=== PATIENT | female | born 1935 | race Caucasian/White ===

== ENCOUNTER 2019-08-17 13:37 | Outpatient (CLI) | payer MEDICARE ==
--- NOTE | 2019-08-17 14:37 | ULT ---
US Renal Bilateral STANDARD HISTORY: Chronic renal disease. COMPARISON: CT abdomen and pelvis dated 08/03/2019 from the [facility]. FINDINGS: The right kidney measures 9.3; in the left kidney measures 9.871. No hydronephrosis is seen on this s arielle. There is a 3.2 cm cyst arising from the right kidney which is also seen on the CT scan. There are echogenic foci in the left kidney measuring 6 mm in the inferior pole and 5 mm in the midpole. Th is may represent calculi. The mass arising in the right perirenal space on the CT scan is not definitely seen on this exam. A f ollow-up CT scan of the abdomen and pelvis using the renal mass protocol is recommended in 3 months
[2019-08-17 16:15] LABS: Anion Gap 14 mmol/L (10-20); BUN (Urea Nitrogen) 19 mg/dL (9.8-20.1); Calc. Creatinine Clearance 0 mL/min (70-130); Calcium 10.5 mg/dL (7.8-10.44); Carbon Dioxide 25 mmol/L (23-31); Chloride 105 mmol/L (98-107); Estimated GFR-MDRD 38; Glucose 203 mg/dL (83-110); Potassium 4.7 mmol/L (3.5-5.1); Sodium 139 mmol/L (136-145)
[2019-08-17 16:24] LABS: Creatinine, Urine 132.2 mg/dL (47-110)
== END 2019-08-17 13:38 | disposition home or self-care (01) ==
LOC: SCSULT 13:37
PROVIDERS: ATTEND Internal Medicine Nephrology
DX: E11.22 Type 2 diabetes mellitus with diabetic chronic kidney disease (principal); N18.3 Chronic kidney disease, stage 3 (moderate)
CPT/HCPCS: 36415; 76770; 80048; 82570; 84156

== ENCOUNTER 2022-01-02 03:18 | Inpatient (IN) | payer MEDICARE ==
[2022-01-02] MEDS ORDERED: Nitroglycerin 50 MG/250 ML BOT 250 ML ONE (04:57)
[2022-01-02] MEDS ORDERED: Nitroglycerin 0.4 MG TAB (25 Tab Bottle) ONE (04:57)
[2022-01-02 06:30] LABS: #Lymphocytes 1.3 thou/uL (1.20-3.40); #Monocytes 0.9 thou/uL (0.11-0.59); #Neutrophils 10.4 thou/uL (1.40-6.50); %Basophils 0.1 % (0.0-1.0); %Eosinophils 0.1 % (0.0-10.0); %Lymphocytes 10.5 % (21.0-51.0); %Monocytes 7.2 % (0.0-10.0); Mean Corpuscular HGB CONC 31.7 g/dL (32.0-36.0); Mean Corpuscular Hemoglobin 29.5 pg (27.0-31.0); Mean Corpuscular Volume 93.3 fL (78.0-98.0); Mean Platelet Volume 8.9 fL (7.4-10.4); Platelet Count 225 thou/uL (130-400); RBC Distribution Width 12.6 % (11.5-14.5); Red Blood Cell (RBC) Count 3.74 mill/uL (4.20-5.40); White Blood Cell (WBC) Count 12.6 thou/uL (4.8-10.8)
[2022-01-02 06:33] VITALS: BMI 27.1
[2022-01-02 06:54] LABS: ALT (SGPT) 28 U/L (8-55); AST (SGOT) 81 U/L (5-34); Albumin 3.4 g/dL (3.4-4.8); Alkaline Phosphatase 50 U/L (40-110); Anion Gap 16 mmol/L (10-20); BUN (Urea Nitrogen) 20 mg/dL (9.8-20.1); Bilirubin, Total 0.3 mg/dL (0.2-1.2); Calc. Creatinine Clearance 30 mL/min (70-130); Calcium 9.8 mg/dL (7.8-10.44); Carbon Dioxide 24 mmol/L (23-31); Chloride 101 mmol/L (98-107); Estimated GFR 36; Globulin 2.6 g/dL (2.4-3.5); Glucose 336 mg/dL (83-110); Potassium 3.8 mmol/L (3.5-5.1); Sodium 137 mmol/L (136-145)
[2022-01-02 06:59] LABS: Troponin I 40.823 ng/mL (< 0.028)
[2022-01-02] MEDS ORDERED: Sodium Chloride 0.9% 1,000 ML IV SCH (07:00)
[2022-01-02] MEDS ORDERED: Heparin 25,000 units/D5W 500 ML IV SCH (07:00)
[2022-01-02] MEDS ORDERED: Nitroglycerin 50 MG/250 ML BOT 250 ML IVPB SCH ×2 (07:00→11:30)
[2022-01-02] MEDS ORDERED: Heparin 10,000 UNITS/ 10 ML VIAL SLOW IVP SCH (07:00)
[2022-01-02] MEDS ORDERED: Communication Order-Pharmacy FS PRN (07:07)
[2022-01-02 07:53] LABS: PTT 241.2 sec (22.9-36.1)
[2022-01-02] MEDS ORDERED: HumaLOG 300 UNITS/3 ML VIAL SC PRN (10:59)
[2022-01-02] MEDS ORDERED: Dextrose 50% Abboject 50 ML SYRINGE SLOW IVP PRN ×2 (10:59→16:30)
[2022-01-02] MEDS ORDERED: Dextrose 5% in Water 1,000 ML IV PRN ×2 (10:59→16:30)
[2022-01-02] MEDS ORDERED: Albumin 5% 500 ML ONE (11:49)
[2022-01-02] MEDS ORDERED: Midazolam HCl 5 mg/5 ml Vial ONE (11:56)
[2022-01-02] MEDS ORDERED: fentaNYL Citrate/PF 100 MCG/2 ML SYRINGE ONE (11:56)
[2022-01-02] MEDS ORDERED: Dexmedetomidine 200 MCG/2 ML VIAL ONE (11:57)
[2022-01-02] MEDS ORDERED: PHENYLEPHRINE-NS 100 MCG/ML 10 ML SYRINGE ONE ×2 (12:09→12:10)
[2022-01-02] MEDS ORDERED: Heparin 10,000 UNITS/1 ML VIAL 30,000 UNITS in Sodium Chloride 0.9% 1,000 ML IVPB SCH (12:15)
[2022-01-02] MEDS ORDERED: Protamine Sulfate 250 MG/25 ML VIAL ONE (12:39)
[2022-01-02] MEDS ORDERED: Cardioplegic Soln 1,000 ML BAG ONE (12:39)
[2022-01-02] MEDS ORDERED: Magnesium Sulfate 1 GM/2 ML VIAL ONE (12:39)
[2022-01-02] MEDS ORDERED: Aminocaproic Acid 5 GM/20 ML VIAL ONE (12:39)
[2022-01-02] MEDS ORDERED: Lidocaine 1% PF 5 ML VIAL ONE (12:39)
[2022-01-02] MEDS ORDERED: Lidocaine 2% PF 100 mg/5 ml Syringe ONE (12:39)
[2022-01-02] MEDS ORDERED: Heparin 5,000 UNITS/ML VIAL ONE (12:39)
[2022-01-02] MEDS ORDERED: Heparin 30,000 units/30 ml VIAL ONE (12:39)
[2022-01-02] MEDS ORDERED: Papaverine 60 MG/2 ML VIAL ONE (12:39)
[2022-01-02] MEDS ORDERED: Norepinephrine 4 MG/4 ML VIAL ONE (12:39)
[2022-01-02] MEDS ORDERED: PROPOFOL 200 MG/20 ML VIAL ONE (12:39)
[2022-01-02] MEDS ORDERED: Calcium Chloride 1 GM/10 ML Abboject SYRINGE ONE (12:39)
[2022-01-02] MEDS ORDERED: Mannitol 12.5 GM/50 ML ONE (12:39)
[2022-01-02] MEDS ORDERED: Sodium Bicarb 50 MEQ/50 ML Abboject 8.4% SYRINGE ONE (12:39)
[2022-01-02] MEDS ORDERED: Thrombin 5000 UNITS/5 ML VIAL ONE (12:39)
[2022-01-02] MEDS ORDERED: Milrinone 10 MG/10 ML VIAL ONE (14:48)
[2022-01-02] MEDS ORDERED: niCARdipine 25 MG in Sodium Chloride 0.9% 250 ML 250 ML IVPB PRN (16:02)
[2022-01-02] MEDS ORDERED: Ondansetron PF 4 MG/2 ML Vial IVP PRN (16:02)
[2022-01-02] MEDS ORDERED: Norepinephrine 8 MG/0.9% NS 250 ML IVPB PRN (16:02)
[2022-01-02] MEDS ORDERED: Bisacodyl 5 MG TAB PO PRN (16:02)
[2022-01-02] MEDS ORDERED: hydrALAZINE 20 MG/ML VIAL SLOW IVP PRN (16:02)
[2022-01-02] MEDS ORDERED: Bisacodyl 10 MG SUPP PR PRN (16:02)
[2022-01-02] MEDS ORDERED: Nitroglycerin 50 MG/250 ML BOT 250 ML IVPB PRN (16:02)
[2022-01-02] MEDS ORDERED: Morphine 2 MG/ML VIAL SLOW IVP PRN (16:02)
[2022-01-02] MEDS ORDERED: DOPamine 400 MG/D5W 250 ML 250 ML IVPB PRN (16:02)
[2022-01-02] MEDS ORDERED: Post-Op Insulin Drip Protocol IVPB ONE (16:02)
[2022-01-02] MEDS ORDERED: Guaifenesin DM 100-10/5 ML UDCUP PO PRN (16:02)
[2022-01-02] MEDS ORDERED: Mag-Al 1200 mg/1200 mg/30 ML UDCUP PO PRN (16:02)
[2022-01-02] MEDS ORDERED: HYDROcodone/Acetaminophen 5/325 mg Tablet PO PRN ×2 (16:02)
[2022-01-02] MEDS ORDERED: Hetastarch 6% 500 ML 500 ML IVPB PRN (16:02)
[2022-01-02] MEDS ORDERED: Fentanyl 100 MCG/2 ML VIAL SLOW IVP PRN ×2 (16:02)
[2022-01-02] MEDS ORDERED: HUMULIN R 100 UNITS in Sodium Chloride 0.9% 100 ML IVPB SCH (16:30)
[2022-01-02 16:48] LABS: Hemoglobin 9.4 g/dL (12.0-16.0); Mean Corpuscular HGB CONC 31.8 g/dL (32.0-36.0); Mean Corpuscular Hemoglobin 29.1 pg (27.0-31.0); Mean Corpuscular Volume 91.6 fL (78.0-98.0); Mean Platelet Volume 8.6 fL (7.4-10.4); Platelet Count 186 thou/uL (130-400); RBC Distribution Width 14.1 % (11.5-14.5); Red Blood Cell (RBC) Count 3.22 mill/uL (4.20-5.40); White Blood Cell (WBC) Count 21.8 thou/uL (4.8-10.8)
[2022-01-02] MEDS: Sodium Chloride 0.9% 1,000 ML IV SCH (16:52)
[2022-01-02 17:00] LABS: INR-International Normal Ratio 1.3; Prothrombin Time 16.7 sec (12.0-14.7)
[2022-01-02 17:01] LABS: Actual Bicarbonate (HCO3a) 20.4 mEq/L (22-28); Base Excess (BEa) -3.9 mEq/L (-2.0 to +3.0); CO2 Tension 34.2 mmHg (35.0-45.0); Calcium, Ionized (arterial) 1.06 mmol/L (1.12-1.30); Carboxyhemoglobin (COHb) 0.3 gm% (0.0-3.0); Hemoglobin (Hb) 10.1 g/dL (12.0-16.0); O2 Tension (PaO2), arterial 91.3 mmHg (> 60.0); Potassium - ABG Lab 2.94 mmol/L (3.70-5.30); pH, Arterial 7.39 (7.35-7.45)
[2022-01-02] MEDS: CEFAZOLIN 2 GM in Sodium Chloride 0.9% 100 ML IVPB SCH (17:01)
[2022-01-02 17:03] LABS: Puncture Site Arterial Line
[2022-01-02 17:06] LABS: Band 9 % (5-11); Eosinophils 1 % (0-10); Lymphocytes 6 % (21-51); MDiff Complete? YES; Monocytes 6 % (0-10); Neutrophil 78 % (42-75); Platelet Morphology Comment Appears Adequate; Polychromasia SLIGHT = 2-3 cells (100X) (0-2/hpf)
[2022-01-02 17:08] LABS: Anion Gap 14 mmol/L (10-20); BUN (Urea Nitrogen) 15 mg/dL (9.8-20.1); Calc. Creatinine Clearance 49 mL/min (70-130); Calcium 7.3 mg/dL (7.8-10.44); Carbon Dioxide 22 mmol/L (23-31); Chloride 111 mmol/L (98-107); Estimated GFR 66; Glucose 181 mg/dL (83-110); Potassium 3.2 mmol/L (3.5-5.1); Sodium 144 mmol/L (136-145)
[2022-01-02] MEDS: Potassium Chloride 20 MEQ/100 ML PREMIX BAG IVPB PRN (17:14)
[2022-01-02] MEDS ORDERED: Propofol 1,000 MG/100 ML VIAL IV PRN (20:00)
[2022-01-02] MEDS ORDERED: Lorazepam 2 MG/ML VIAL SLOW IVP PRN (20:00)
[2022-01-02] MEDS ORDERED: fentaNYL Citrate/PF 2,000 MCG in Sodium Chloride 0.9% 60 ML IV SCH (20:00)
[2022-01-02] MEDS ORDERED: Morphine 4 MG/ML VIAL SLOW IVP PRN (20:00)
[2022-01-02] MEDS ORDERED: Fentanyl BOLUS 250 ML IVPB PRN (20:00)
[2022-01-02] MEDS ORDERED: Propofol BOLUS 1,000 MG/100 ML VIAL IV PRN (20:00)
[2022-01-02] MEDS ORDERED: DISCONTINUE PREVIOUS NARCOTIC PAIN MEDICATIONS AND BENZODIAZEPINES FS SCH (20:00)
[2022-01-02] MEDS ORDERED: fentaNYL Citrate-0.9 % NaCl/PF 100 ML IVPB SCH (20:15)
[2022-01-02] MEDS: Famotidine/PF 20 mg/2ml Vial SLOW IVP SCH (20:33)
[2022-01-02 22:47] LABS: Hemoglobin 9.5 g/dL (12.0-16.0)
[2022-01-02 23:00] LABS: Potassium 3.1 mmol/L (3.5-5.1)
[2022-01-03] MEDS: CEFAZOLIN 2 GM in Sodium Chloride 0.9% 100 ML IVPB SCH ×2 (00:24→09:11)
[2022-01-03 04:42] LABS: #Lymphocytes 1.5 thou/uL (1.20-3.40); #Monocytes 1.6 thou/uL (0.11-0.59); #Neutrophils 8.8 thou/uL (1.40-6.50); %Basophils 0.2 % (0.0-1.0); %Eosinophils 0.2 % (0.0-10.0); %Lymphocytes 12.3 % (21.0-51.0); %Monocytes 13.6 % (0.0-10.0); %Neutrophils 73.7 % (42.0-75.0); Mean Corpuscular HGB CONC 32.9 g/dL (32.0-36.0); Mean Corpuscular Hemoglobin 30.1 pg (27.0-31.0); Mean Corpuscular Volume 91.4 fL (78.0-98.0); Mean Platelet Volume 9.4 fL (7.4-10.4); Platelet Count 130 thou/uL (130-400); Red Blood Cell (RBC) Count 2.66 mill/uL (4.20-5.40); White Blood Cell (WBC) Count 11.9 thou/uL (4.8-10.8)
[2022-01-03 04:56] LABS: Anion Gap 12 mmol/L (10-20); BUN (Urea Nitrogen) 15 mg/dL (9.8-20.1); Calc. Creatinine Clearance 48 mL/min (70-130); Calcium 7.5 mg/dL (7.8-10.44); Carbon Dioxide 20 mmol/L (23-31); Chloride 116 mmol/L (98-107); Estimated GFR 63; Glucose 132 mg/dL (83-110); Potassium 3.4 mmol/L (3.5-5.1); Sodium 145 mmol/L (136-145)
[2022-01-03] MEDS: Sodium Chloride 0.9% 1,000 ML IV SCH ×2 (08:28→18:48)
[2022-01-03] MEDS: Sodium Chloride 0.45% 1,000 ML IV SCH (08:33)
[2022-01-03] MEDS: Famotidine/PF 20 mg/2ml Vial SLOW IVP SCH ×2 (09:10→21:12)
[2022-01-03] MEDS: Aspirin Chewable 81 MG TAB PO SCH ×2 (09:11→15:37)
[2022-01-03] MEDS ORDERED: Lidocaine 1% (PF) 30 ML VIAL ONE (10:24)
[2022-01-03] MEDS ORDERED: Furosemide 40 MG/4 ML VIAL ONE (11:07)
[2022-01-03] MEDS ORDERED: Furosemide 40 MG/4 ML VIAL SLOW IVP SCH (11:30)
[2022-01-03] MEDS: Potassium Chloride 20 MEQ/100 ML PREMIX BAG IVPB PRN (12:04)
[2022-01-03 15:08] LABS: Hemoglobin 9.5 g/dL (12.0-16.0); Platelet Count 120 thou/uL (130-400)
[2022-01-03] MEDS: Acetaminophen 325 MG TAB PO PRN (15:37)
[2022-01-03] MEDS: Insulin Regular 300 UNITS/3 ML VIAL SC PRN (21:12)
[2022-01-04] MEDS: Insulin Regular 300 UNITS/3 ML VIAL SC PRN ×6 (00:03→20:14)
[2022-01-04] MEDS: Sodium Chloride 0.45% 1,000 ML IV SCH (00:05)
[2022-01-04] MEDS ORDERED: HYDROcodone/Acetaminophen 5/325 mg Tablet PO PRN ×2 (03:14→03:15)
[2022-01-04] MEDS ORDERED: Fentanyl 100 MCG/2 ML VIAL SLOW IVP PRN ×2 (03:14)
[2022-01-04 04:33] LABS: Anion Gap 16 mmol/L (10-20); BUN (Urea Nitrogen) 17 mg/dL (9.8-20.1); Calc. Creatinine Clearance 45 mL/min (70-130); Calcium 7.9 mg/dL (7.8-10.44); Carbon Dioxide 19 mmol/L (23-31); Chloride 112 mmol/L (98-107); Estimated GFR 54; Glucose 196 mg/dL (83-110); Potassium 3.7 mmol/L (3.5-5.1); Sodium 143 mmol/L (136-145)
[2022-01-04 04:36] LABS: #Lymphocytes 1.1 thou/uL (1.20-3.40); #Monocytes 1.4 thou/uL (0.11-0.59); #Neutrophils 10.6 thou/uL (1.40-6.50); %Basophils 0.2 % (0.0-1.0); %Eosinophils 0.2 % (0.0-10.0); %Lymphocytes 8.6 % (21.0-51.0); %Monocytes 10.8 % (0.0-10.0); %Neutrophils 80.2 % (42.0-75.0); Hemoglobin 8.8 g/dL (12.0-16.0); Mean Corpuscular HGB CONC 33.4 g/dL (32.0-36.0); Mean Corpuscular Hemoglobin 30.3 pg (27.0-31.0); Mean Platelet Volume 9.2 fL (7.4-10.4); Platelet Count 106 thou/uL (130-400); Red Blood Cell (RBC) Count 2.88 mill/uL (4.20-5.40); White Blood Cell (WBC) Count 13.2 thou/uL (4.8-10.8)
[2022-01-04] MEDS ORDERED: traMADol HCl 50 MG TAB PO PRN (06:47)
[2022-01-04] MEDS: Polyethylene Glycol 3350 17 GM Packet PO SCH (08:22)
[2022-01-04] MEDS: Potassium Chloride 20 MEQ/100 ML PREMIX BAG IVPB PRN (08:22)
[2022-01-04] MEDS: Aspirin Chewable 81 MG TAB PO SCH (08:23)
[2022-01-04] MEDS ORDERED: Furosemide 40 MG/4 ML VIAL SLOW IVP SCH (09:00)
[2022-01-04] MEDS: Acetaminophen 325 MG TAB PO PRN ×2 (10:48→18:25)
[2022-01-04] MEDS ORDERED: Famotidine/PF 20 mg/2ml Vial SLOW IVP SCH (21:00)
[2022-01-05] MEDS: Insulin Regular 300 UNITS/3 ML VIAL SC PRN ×3 (00:29→08:39)
[2022-01-05 04:32] LABS: #Eosinphils 0.1 thou/uL (0.0-0.7); #Lymphocytes 1.1 thou/uL (1.20-3.40); #Monocytes 1.1 thou/uL (0.11-0.59); #Neutrophils 9.2 thou/uL (1.40-6.50); %Basophils 0.3 % (0.0-1.0); %Eosinophils 0.6 % (0.0-10.0); %Lymphocytes 9.7 % (21.0-51.0); %Monocytes 9.4 % (0.0-10.0); %Neutrophils 79.9 % (42.0-75.0); Mean Corpuscular HGB CONC 33.4 g/dL (32.0-36.0); Mean Corpuscular Hemoglobin 30.6 pg (27.0-31.0); Mean Corpuscular Volume 91.5 fL (78.0-98.0); Platelet Count 113 thou/uL (130-400); RBC Distribution Width 14.1 % (11.5-14.5); Red Blood Cell (RBC) Count 2.62 mill/uL (4.20-5.40); White Blood Cell (WBC) Count 11.5 thou/uL (4.8-10.8)
[2022-01-05] MEDS: Acetaminophen 325 MG TAB PO PRN ×2 (04:35→21:49)
[2022-01-05 04:50] LABS: Anion Gap 13 mmol/L (10-20); BUN (Urea Nitrogen) 25 mg/dL (9.8-20.1); Calc. Creatinine Clearance 41 mL/min (70-130); Calcium 8.3 mg/dL (7.8-10.44); Carbon Dioxide 21 mmol/L (23-31); Chloride 111 mmol/L (98-107); Estimated GFR 48; Glucose 133 mg/dL (83-110); Potassium 3.6 mmol/L (3.5-5.1); Sodium 141 mmol/L (136-145)
[2022-01-05] MEDS ORDERED: Furosemide 40 MG/4 ML VIAL SLOW IVP SCH (07:30)
[2022-01-05] MEDS: Polyethylene Glycol 3350 17 GM Packet PO SCH (08:46)
[2022-01-05] MEDS: Aspirin Chewable 81 MG TAB PO SCH (08:46)
[2022-01-05] MEDS ORDERED: Mag-Al 1200 mg/1200 mg/30 ML UDCUP PO PRN (11:30)
[2022-01-05] MEDS ORDERED: Mineral Oil ENEMA PR PRN (11:30)
[2022-01-05] MEDS ORDERED: Guaifenesin DM 100-10/5 ML UDCUP PO PRN (11:30)
[2022-01-05] MEDS ORDERED: Zolpidem Tartrate 5 MG TAB PO PRN (11:30)
[2022-01-05] MEDS ORDERED: Bisacodyl 10 MG SUPP PR PRN (11:30)
[2022-01-05] MEDS ORDERED: Bisacodyl 5 MG TAB PO PRN (11:30)
[2022-01-05] MEDS ORDERED: diphenhydrAMINE 25 MG CAP PO PRN (11:30)
[2022-01-05] MEDS ORDERED: Milk Of Magnesia 30 ML UDCUP PO PRN (11:30)
[2022-01-05] MEDS ORDERED: Nitroglycerin 0.4 MG TAB (25 Tab Bottle) SL PRN (11:30)
[2022-01-05] MEDS: Furosemide 40 MG/4 ML VIAL SLOW IVP SCH (14:28)
[2022-01-06 05:04] LABS: #Eosinphils 0.3 thou/uL (0.0-0.7); #Lymphocytes 1.2 thou/uL (1.20-3.40); #Monocytes 1.1 thou/uL (0.11-0.59); #Neutrophils 6.4 thou/uL (1.40-6.50); %Basophils 0.2 % (0.0-1.0); %Eosinophils 3.5 % (0.0-10.0); %Lymphocytes 13.4 % (21.0-51.0); %Monocytes 12.3 % (0.0-10.0); %Neutrophils 70.6 % (42.0-75.0); Hemoglobin 7.6 g/dL (12.0-16.0); Mean Corpuscular HGB CONC 32.1 g/dL (32.0-36.0); Mean Corpuscular Volume 93.7 fL (78.0-98.0); Mean Platelet Volume 8.5 fL (7.4-10.4); Platelet Count 154 thou/uL (130-400); RBC Distribution Width 14.1 % (11.5-14.5); Red Blood Cell (RBC) Count 2.52 mill/uL (4.20-5.40); White Blood Cell (WBC) Count 9.1 thou/uL (4.8-10.8)
[2022-01-06 05:07] LABS: Anion Gap 13 mmol/L (10-20); BUN (Urea Nitrogen) 22 mg/dL (9.8-20.1); Calc. Creatinine Clearance 45 mL/min (70-130); Calcium 8.5 mg/dL (7.8-10.44); Carbon Dioxide 24 mmol/L (23-31); Chloride 107 mmol/L (98-107); Estimated GFR 56; Glucose 143 mg/dL (83-110); Potassium 3.4 mmol/L (3.5-5.1); Sodium 141 mmol/L (136-145)
[2022-01-06] MEDS: Furosemide 40 MG/4 ML VIAL SLOW IVP SCH (05:27)
[2022-01-06] MEDS: Polyethylene Glycol 3350 17 GM Packet PO SCH (10:16)
[2022-01-06] MEDS: Aspirin Chewable 81 MG TAB PO SCH (10:16)
[2022-01-06] MEDS ORDERED: HumaLOG 300 UNITS/3 ML VIAL SC PRN (10:34)
[2022-01-06] MEDS ORDERED: Dextrose 5% in Water 1,000 ML IV PRN (10:34)
[2022-01-06] MEDS ORDERED: Dextrose 50% Abboject 50 ML SYRINGE SLOW IVP PRN (10:34)
[2022-01-06] MEDS ORDERED: Insulin Glargine 30 UNITS/0.3 ML VIAL SC SCH (11:15)
[2022-01-06] MEDS: Acetaminophen 325 MG TAB PO PRN (12:28)
[2022-01-06] MEDS: Furosemide 40 MG TAB PO SCH (16:05)
[2022-01-06] MEDS: Losartan 25 MG TAB PO SCH (18:07)
[2022-01-06] MEDS: Potassium Chloride 10 MEQ TAB PO SCH (18:07)
[2022-01-06] MEDS: Oxybutynin 5 MG TAB PO SCH (20:46)
[2022-01-06] MEDS: Rosuvastatin 10 MG TAB PO SCH (20:46)
[2022-01-07 05:00] LABS: Hemoglobin 7.8 g/dL (12.0-16.0); Mean Corpuscular HGB CONC 32.1 g/dL (32.0-36.0); Mean Corpuscular Hemoglobin 30.1 pg (27.0-31.0); Mean Corpuscular Volume 93.7 fL (78.0-98.0); Mean Platelet Volume 7.7 fL (7.4-10.4); Platelet Count 207 thou/uL (130-400); RBC Distribution Width 13.8 % (11.5-14.5); Red Blood Cell (RBC) Count 2.59 mill/uL (4.20-5.40)
[2022-01-07 05:06] LABS: Anion Gap 12 mmol/L (10-20); BUN (Urea Nitrogen) 24 mg/dL (9.8-20.1); Calc. Creatinine Clearance 48 mL/min (70-130); Calcium 9.1 mg/dL (7.8-10.44); Carbon Dioxide 28 mmol/L (23-31); Chloride 104 mmol/L (98-107); Estimated GFR 56; Glucose 126 mg/dL (83-110); Potassium 3.2 mmol/L (3.5-5.1); Sodium 141 mmol/L (136-145)
[2022-01-07 06:33] LABS: Band 2 % (5-11); Eosinophils 4 % (0-10); Lymphocytes 19 % (21-51); MDiff Complete? YES; Monocytes 12 % (0-10); Neutrophil 63 % (42-75)
[2022-01-07] MEDS: Potassium Chloride 10 MEQ TAB PO SCH ×2 (09:43→16:55)
[2022-01-07] MEDS: Furosemide 40 MG TAB PO SCH ×2 (09:43→13:21)
[2022-01-07] MEDS: Aspirin Chewable 81 MG TAB PO SCH (09:43)
[2022-01-07] MEDS: Acetaminophen 325 MG TAB PO PRN ×2 (09:44→21:23)
[2022-01-07] MEDS: Insulin Glargine 30 UNITS/0.3 ML VIAL SC SCH (09:46)
[2022-01-07] MEDS: Polyethylene Glycol 3350 17 GM Packet PO SCH (10:00)
[2022-01-07] MEDS ORDERED: Potassium Chloride 20 MEQ TAB PO SCH (12:00)
[2022-01-07] MEDS: Losartan 25 MG TAB PO SCH (16:55)
[2022-01-07] MEDS ORDERED: Clopidogrel Bisulfate 75 MG TAB PO SCH (17:30)
[2022-01-07] MEDS: Rosuvastatin 10 MG TAB PO SCH (21:23)
[2022-01-07] MEDS: Oxybutynin 5 MG TAB PO SCH (21:23)
[2022-01-07] MEDS: Enoxaparin Sodium 30 MG/0.3 ML SYRINGE SC SCH (21:23)
[2022-01-08] MEDS: Acetaminophen 325 MG TAB PO PRN ×2 (07:44→16:58)
[2022-01-08] MEDS: Potassium Chloride 10 MEQ TAB PO SCH ×2 (09:35→16:58)
[2022-01-08] MEDS: Aspirin Chewable 81 MG TAB PO SCH (09:35)
[2022-01-08] MEDS: Clopidogrel Bisulfate 75 MG TAB PO SCH (09:35)
[2022-01-08] MEDS: Furosemide 40 MG TAB PO SCH (09:36)
[2022-01-08] MEDS: Polyethylene Glycol 3350 17 GM Packet PO SCH (09:36)
[2022-01-08] MEDS: Insulin Glargine 30 UNITS/0.3 ML VIAL SC SCH (09:38)
[2022-01-08] MEDS: Losartan 25 MG TAB PO SCH (16:58)
[2022-01-08] MEDS: Rosuvastatin 10 MG TAB PO SCH (20:57)
[2022-01-08] MEDS: Oxybutynin 5 MG TAB PO SCH (20:57)
[2022-01-08] MEDS: Enoxaparin Sodium 30 MG/0.3 ML SYRINGE SC SCH (20:57)
[2022-01-09] MEDS: Acetaminophen 325 MG TAB PO PRN ×3 (06:28→21:06)
[2022-01-09] MEDS: Furosemide 40 MG TAB PO SCH (06:29)
[2022-01-09] MEDS: Clopidogrel Bisulfate 75 MG TAB PO SCH (09:15)
[2022-01-09] MEDS: Potassium Chloride 10 MEQ TAB PO SCH ×2 (09:15→16:52)
[2022-01-09] MEDS: Aspirin Chewable 81 MG TAB PO SCH (09:15)
[2022-01-09] MEDS: Polyethylene Glycol 3350 17 GM Packet PO SCH (09:16)
[2022-01-09] MEDS: Insulin Glargine 30 UNITS/0.3 ML VIAL SC SCH (09:16)
[2022-01-09] MEDS ORDERED: Potassium Chloride 20 MEQ TAB PO SCH (12:00)
[2022-01-09] MEDS: Losartan 25 MG TAB PO SCH (16:52)
[2022-01-09] MEDS: Rosuvastatin 10 MG TAB PO SCH (21:05)
[2022-01-09] MEDS: Oxybutynin 5 MG TAB PO SCH (21:05)
[2022-01-09] MEDS: Enoxaparin Sodium 30 MG/0.3 ML SYRINGE SC SCH (21:07)
[2022-01-10] MEDS: Clopidogrel Bisulfate 75 MG TAB PO SCH (09:12)
[2022-01-10] MEDS: Furosemide 40 MG TAB PO SCH (09:12)
[2022-01-10] MEDS: Acetaminophen 325 MG TAB PO PRN (09:12)
[2022-01-10] MEDS: Aspirin Chewable 81 MG TAB PO SCH (09:12)
[2022-01-10] MEDS: Insulin Glargine 30 UNITS/0.3 ML VIAL SC SCH (09:13)
[2022-01-10] MEDS: Potassium Chloride 10 MEQ TAB PO SCH (09:13)
[2022-01-10] MEDS: Polyethylene Glycol 3350 17 GM Packet PO SCH (09:14)
[2022-01-10 11:43] VITALS: TEMP 98
[2022-01-10 12:05] VITALS: BP 120/55
[2022-01-11 14:16] LABS: Actual Bicarbonate (HCO3a) 22.8 mEq/L (22-28); Analyzer IN Cardio OR; Base Excess (BEa) -1.6 mEq/L (-2.0 to +3.0); CO2 Tension 36.7 mmHg (35.0-45.0); Calcium, Ionized (arterial) 0.96 mmol/L (1.12-1.30); Carboxyhemoglobin (COHb) 1.2 gm% (0.0-3.0); Hemoglobin (Hb) 6.9 g/dL (12.0-16.0); Potassium - ABG Lab 3.64 mmol/L (3.70-5.30); pH, Arterial 7.41 (7.35-7.45)
[2022-01-11 14:16] LABS: Actual Bicarbonate (HCO3a) 20.5 mEq/L (22-28); Analyzer IN Cardio OR; Base Excess (BEa) -4.2 mEq/L (-2.0 to +3.0); CO2 Tension 35.9 mmHg (35.0-45.0); Calcium, Ionized (arterial) 0.96 mmol/L (1.12-1.30); Carboxyhemoglobin (COHb) 0.4 gm% (0.0-3.0); O2 Tension (PaO2), arterial 128.6 mmHg (> 60.0); Potassium - ABG Lab 3.04 mmol/L (3.70-5.30); pH, Arterial 7.38 (7.35-7.45)
[2022-01-11 14:16] LABS: Actual Bicarbonate (HCO3a) 25.9 mEq/L (22-28); Analyzer IN Cardio OR; Base Excess (BEa) 0.9 mEq/L (-2.0 to +3.0); CO2 Tension 43.4 mmHg (35.0-45.0); Calcium, Ionized (arterial) 1.04 mmol/L (1.12-1.30); O2 Tension (PaO2), arterial 393.1 mmHg (> 60.0); Potassium - ABG Lab 3.72 mmol/L (3.70-5.30); pH, Arterial 7.39 (7.35-7.45)
[2022-01-11 14:17] LABS: Actual Bicarbonate (HCO3a) 23.1 mEq/L (22-28); Analyzer IN Cardio OR; Base Excess (BEa) -0.9 mEq/L (-2.0 to +3.0); CO2 Tension 34.4 mmHg (35.0-45.0); Calcium, Ionized (arterial) 0.95 mmol/L (1.12-1.30); Carboxyhemoglobin (COHb) 0.8 gm% (0.0-3.0); Hemoglobin (Hb) 6.3 g/dL (12.0-16.0); O2 Tension (PaO2), arterial 419.4 mmHg (> 60.0); Potassium - ABG Lab 2.84 mmol/L (3.70-5.30); pH, Arterial 7.45 (7.35-7.45)
[2022-01-11 14:21] LABS: Actual Bicarbonate (HCO3a) 19.9 mEq/L (22-28); Analyzer IN Cardio OR; Base Excess (BEa) -5.3 mEq/L (-2.0 to +3.0); CO2 Tension 37.3 mmHg (35.0-45.0); Calcium, Ionized (arterial) 1.13 mmol/L (1.12-1.30); Carboxyhemoglobin (COHb) 0.3 gm% (0.0-3.0); Hemoglobin (Hb) 9.5 g/dL (12.0-16.0); O2 Tension (PaO2), arterial 219.8 mmHg (> 60.0); Potassium - ABG Lab 2.71 mmol/L (3.70-5.30); pH, Arterial 7.34 (7.35-7.45)
[2022-01-11 14:21] LABS: Actual Bicarbonate (HCO3a) 20.7 mEq/L (22-28); Analyzer IN Cardio OR; Base Excess (BEa) -3.8 mEq/L (-2.0 to +3.0); CO2 Tension 35.5 mmHg (35.0-45.0); Calcium, Ionized (arterial) 1.11 mmol/L (1.12-1.30); Carboxyhemoglobin (COHb) 0.3 gm% (0.0-3.0); Hemoglobin (Hb) 10.4 g/dL (12.0-16.0); O2 Tension (PaO2), arterial 242.2 mmHg (> 60.0); Potassium - ABG Lab 2.87 mmol/L (3.70-5.30); Puncture Site ALINE; pH, Arterial 7.38 (7.35-7.45)
[2022-01-11 14:22] LABS: Puncture Site Arterial Line
[2022-01-11 14:22] LABS: Puncture Site Arterial Line
[2022-01-11 14:23] LABS: Puncture Site Arterial Line
[2022-01-11 14:24] LABS: Puncture Site Arterial Line
[2022-01-11 14:24] LABS: Puncture Site Arterial Line
== END 2022-01-10 14:30 | DRG 235 ==
LOC: CCU 03:18 → 2NO 01-05 13:45
PROVIDERS: ADMIT Thoracic Surgery (Cardiothoracic Vascular Surgery); ATTEND Thoracic Surgery (Cardiothoracic Vascular Surgery)
PROC: 5A09357 Assistance with Respiratory Ventilation, Less than 24 Consecutive Hours, Continuous Positive Airway Pressure (ICD-10-PCS; 2022-01-02)
PROC: 02100Z9 Bypass Coronary Artery, One Artery from Left Internal Mammary, Open Approach (ICD-10-PCS; principal; 2022-01-03)
PROC: 021109W Bypass Coronary Artery, Two Arteries from Aorta with Autologous Venous Tissue, Open Approach (ICD-10-PCS; 2022-01-03)
PROC: 06BQ4ZZ Excision of Left Saphenous Vein, Percutaneous Endoscopic Approach (ICD-10-PCS; 2022-01-03)
PROC: 5A02210 Assistance with Cardiac Output using Balloon Pump, Continuous (ICD-10-PCS; 2022-01-03)
PROC: 5A1221Z Performance of Cardiac Output, Continuous (ICD-10-PCS; 2022-01-03)
PROC: 02L70ZK Occlusion of Left Atrial Appendage, Open Approach (ICD-10-PCS; 2022-01-03)
PROC: 3E033XZ Introduction of Vasopressor into Peripheral Vein, Percutaneous Approach (ICD-10-PCS; 2022-01-03)
DX: I21.09 ST elevation (STEMI) myocardial infarction involving other coronary artery of anterior wall (principal); U07.1 COVID-19; J96.00 Acute respiratory failure, unspecified whether with hypoxia or hypercapnia; R57.0 Cardiogenic shock; G93.49 Other encephalopathy; J98.11 Atelectasis; G45.9 Transient cerebral ischemic attack, unspecified; Z51.5 Encounter for palliative care; E87.6 Hypokalemia; E87.70 Fluid overload, unspecified; I10 Essential (primary) hypertension; I25.10 Atherosclerotic heart disease of native coronary artery without angina pectoris; E11.9 Type 2 diabetes mellitus without complications; E78.00 Pure hypercholesterolemia, unspecified; Z79.4 Long term (current) use of insulin; Z90.710 Acquired absence of both cervix and uterus; Z87.891 Personal history of nicotine dependence
CPT/HCPCS: 33967; 36415; 36416; 36430; 51702; 70450; 71045; 80048; 80053; 81003; 81015; 82553; 82805; 83690; 83735; 83880; 84443; 84484; 85025; 85347; 85610; 85730; 86850; 86900; 86901; 92920; 93005; 93010; 93306; 93458; 93798; 93880; 94002; 94003; 94660; 96365; 96366; 96368; 96374; 96375; 97139; 99152; 99153; 99292; C1725; C1726; C1751; C1769; C1776; C1887; G0278; J0153; J0461; J0583; J0690; J1644; J1650; J1815; J1940; J2001; J2150; J2250; J2260; J2270; J2405; J2440; J2704; J2720; J3010; J3370; J3475; J3480; J3490; J7050; P9016; P9035; P9045; Q9967; S0017; S0028; U0002

== ENCOUNTER 2022-04-02 13:12 | Outpatient (CLI) | payer MEDICARE ==
[2022-04-02 14:45] LABS: #Basophils 0.1 10x3/uL (0.0-0.2); #Eosinphils 0.2 10x3/uL (0.0-0.5); #Monocytes 0.7 10x3/uL (0.0-1.1); #Neutrophils 6.2 10x3/uL (1.5-8.4); %Basophils 0.6 % (0.0-2.0); %Eosinophils 1.8 % (0.0-6.0); %Lymphocytes 19.5 % (18.0-47.0); %Monocytes 7.8 % (0.0-10.0); %Neutrophils 70.1 % (40.0-75.0); Hemoglobin 11.7 g/dL (12.0-15.5); Mean Corpuscular HGB CONC 30.3 g/dL (32.0-36.0); Mean Corpuscular Hemoglobin 24.5 pg (27.0-33.0); Mean Corpuscular Volume 80.9 fl (81.6-98.3); Mean Platelet Volume 11.5 fl (7.4-10.4); Platelet Count 258 10x3/uL (150-450); RBC Distribution Width 15.2 % (11.5-14.5); Red Blood Cell (RBC) Count 4.77 10x6/uL (3.90-5.03); White Blood Cell (WBC) Count 8.8 10x3/uL (3.5-10.5)
[2022-04-02 15:07] LABS: Anion Gap 14 mmol/L (10-20); BUN (Urea Nitrogen) 26 mg/dL (9.8-20.1); Calc. Creatinine Clearance 0 mL/min (70-130); Calcium 10.2 mg/dL (7.8-10.44); Carbon Dioxide 23 mmol/L (23-31); Chloride 107 mmol/L (98-107); Estimated GFR 44; Glucose 138 mg/dL (83-110); Potassium 4.2 mmol/L (3.5-5.1); Sodium 140 mmol/L (136-145)
== END 2022-04-02 13:13 | disposition home or self-care (01) ==
LOC: LABBT 13:12
PROVIDERS: ATTEND Internal Medicine Cardiovascular Disease
DX: Z01.818 Encounter for other preprocedural examination (principal); I49.5 Sick sinus syndrome; Z20.822 Contact with and (suspected) exposure to COVID-19
CPT/HCPCS: 80048; 85025; 87811; 93005; 93010

== ENCOUNTER 2022-04-03 06:05 | Day surgery (SDC) | payer MEDICARE ==
[2022-04-02 13:58] VITALS: BMI 24.7
[2022-04-03] MEDS ORDERED: ceFAZolin 2 GM/Dextrose 50 ML IVPB ONE (06:38)
[2022-04-03] MEDS ORDERED: Gentamicin 80 MG/2 ML VIAL ONE (06:38)
[2022-04-03] MEDS ORDERED: Lidocaine 1% 50ML VIAL ONE ×2 (06:38→07:42)
[2022-04-03] MEDS ORDERED: CEFAZOLIN 1 GM VIAL ONE (06:38)
[2022-04-03] MEDS ORDERED: Midazolam HCl 2 mg/2 ml Vial ONE (07:33)
[2022-04-03] MEDS ORDERED: Fentanyl 100 MCG/2 ML VIAL ONE (07:33)
[2022-04-03] MEDS ORDERED: Iopamidol 370 76% 50 ML VIAL FS ONE (12:47)
[2022-04-03] MEDS ORDERED: fentaNYL Citrate/PF 100 MCG/2 ML SYRINGE ONE (13:45)
== END 2022-04-03 15:19 | disposition home or self-care (01) ==
LOC: SDC 06:05
PROVIDERS: ATTEND Internal Medicine Cardiovascular Disease
PROC: 0JH606Z Insertion of Pacemaker, Dual Chamber into Chest Subcutaneous Tissue and Fascia, Open Approach (ICD-10-PCS; principal; 2022-04-03)
PROC: 02H63JZ Insertion of Pacemaker Lead into Right Atrium, Percutaneous Approach (ICD-10-PCS; 2022-04-03)
PROC: 02HK3JZ Insertion of Pacemaker Lead into Right Ventricle, Percutaneous Approach (ICD-10-PCS; 2022-04-03)
DX: I49.5 Sick sinus syndrome (principal); I10 Essential (primary) hypertension; E11.9 Type 2 diabetes mellitus without complications; E78.00 Pure hypercholesterolemia, unspecified; I25.10 Atherosclerotic heart disease of native coronary artery without angina pectoris; I25.5 Ischemic cardiomyopathy; I45.5 Other specified heart block; I25.2 Old myocardial infarction; Z86.73 Personal history of transient ischemic attack (TIA), and cerebral infarction without residual deficits; Z79.4 Long term (current) use of insulin; Z79.82 Long term (current) use of aspirin; Z79.899 Other long term (current) drug therapy; Z95.1 Presence of aortocoronary bypass graft
CPT/HCPCS: 33208; 36005; 71045; 93005; 99152; 99153; J0690; J1580; J2250; J3010; J3490; Q9967

== ENCOUNTER 2024-01-28 17:11 | Emergency (ER) | payer MEDICARE, OTHER ==
[2024-01-28 18:38] LABS: Phosphorus 3.2 mg/dL (2.3-4.7)
[2024-01-28 18:42] LABS: ALT (SGPT) 35 U/L (8-55); AST (SGOT) 30 U/L (5-34); Albumin 3.5 g/dL (3.4-4.8); Alkaline Phosphatase 107 U/L (40-110); Anion Gap 13 mmol/L (10-20); BUN (Urea Nitrogen) 28 mg/dL (9.8-20.1); Bilirubin, Total 0.3 mg/dL (0.2-1.2); Calc. Creatinine Clearance 0 mL/min (70-130); Calcium 9.5 mg/dL (7.8-10.44); Carbon Dioxide 20 mmol/L (23-31); Chloride 106 mmol/L (98-107); Estimated GFR 27; Globulin 3.2 g/dL (2.4-3.5); Glucose 588 mg/dL (83-110); Lipase 13 U/L (8-78); Magnesium 1.5 mg/dL (1.6-2.6); Potassium 3.8 mmol/L (3.5-5.1); Protein, Total 6.7 g/dL (5.8-8.1); Sodium 135 mmol/L (136-145)
[2024-01-28 18:43] LABS: #Basophils 0.04 10x3/uL (0.0-0.2); %Basophils 0.6 % (0.0-1.0); %Eosinophils 4.1 % (0.0-10.0); %Lymphocytes 20.1 % (21.0-51.0); %Monocytes 9.1 % (0.0-10.0); %Neutrophils 65.8 % (42.0-75.0); Hematocrit 36.3 % (36.0-47.0); Hemoglobin 11.4 g/dL (12.0-16.0); Mean Corpuscular HGB CONC 31.4 g/dL (32.0-36.0); Mean Corpuscular Volume 89.2 fL (78.0-98.0); Mean Platelet Volume 12.6 fL (7.4-10.4); Platelet Count 168 10x3/uL (130-400); RBC Distribution Width 14.3 % (11.5-14.5); Red Blood Cell (RBC) Count 4.07 mill/uL (4.20-5.40)
[2024-01-28 18:44] LABS: Troponin I 0.016 ng/mL (< 0.028)
[2024-01-28] MEDS ORDERED: Magnesium 2 GM/50 ML BAG (IN WATER) ONE (19:45)
[2024-01-28] MEDS ORDERED: Insulin Regular, Human 100 UNIT/ML 10 ML VIAL ONE (19:46)
[2024-01-28 19:57] LABS: Bacteria/HPF 2+ HPF (None Seen); Bilirubin Negative (Negative); Blood, Urine Negative (Negative); CAUTI Indications for Culture Dysuria,urgency,freq; Clarity Clear (Clear); Glucose, Urine (Dipstick) Greater than 1000 mg/dL (Negative); Ketone, Urine Negative (Negative); Leukocyte 75 Leu/uL (Negative); Nitrite 2+ (Negative); Protein, Urine (Dipstick) Negative (Neg-Trace); RBC/HPF 0-3 HPF (0-3); Squamous Epithelial 0-3 HPF (0-3); Urobilinogen Normal mg/dL (Less than 2); WBC/HPF 21-50 HPF (0-3); pH, Urine 5.5 (5.0-9.0)
[2024-01-28 19:58] LABS: Urine Culture Reflex Yes Yes
[2024-01-28] MEDS ORDERED: Sodium Chloride 0.9% 100 ML ONE (20:37)
[2024-01-28] MEDS ORDERED: cefTRIAXone (ROCEPHIN) 1 GM VIAL ONE (20:37)
== END 2024-01-28 21:06 | disposition home or self-care (01) ==
LOC: ERS 17:11
DX: N39.0 Urinary tract infection, site not specified (principal); E11.65 Type 2 diabetes mellitus with hyperglycemia; I10 Essential (primary) hypertension; E11.9 Type 2 diabetes mellitus without complications
CPT/HCPCS: 80053; 81001; 82010; 82962; 83690; 83735; 84100; 84484; 85025; 87077; 87086; J0696; J1815; J3475; 36416; 87186; 96361; 96365; 96375

== ENCOUNTER 2024-05-07 14:32 | Inpatient (IN) | payer OTHER ==
[2024-05-07 15:12] LABS: #Basophils 0.05 10x3/uL (0.0-0.2); %Basophils 0.4 % (0.0-1.0); %Eosinophils 1.3 % (0.0-10.0); %Lymphocytes 17.8 % (21.0-51.0); %Monocytes 6.6 % (0.0-10.0); %Neutrophils 73.5 % (42.0-75.0); Hematocrit 37.2 % (36.0-47.0); Mean Corpuscular HGB CONC 32.3 g/dL (32.0-36.0); Mean Corpuscular Hemoglobin 28.7 pg (27.0-31.0); Mean Platelet Volume 11.9 fL (7.4-10.4); Platelet Count 264 10x3/uL (130-400); RBC Distribution Width 15.9 % (11.5-14.5); Red Blood Cell (RBC) Count 4.18 mill/uL (4.20-5.40)
[2024-05-07] MEDS ORDERED: CALCIUM GLUC 1 GM/NS 50 ML IV Bag ONE (15:16)
[2024-05-07 15:33] LABS: Troponin I 0.025 ng/mL (< 0.028)
[2024-05-07 15:36] LABS: Anion Gap 21 mmol/L (10-20); BUN (Urea Nitrogen) 72 mg/dL (9.8-20.1); Calc. Creatinine Clearance 0 mL/min (70-130); Carbon Dioxide 11 mmol/L (23-31); Chloride 112 mmol/L (98-107); Estimated GFR 13; Glucose 127 mg/dL (83-110); Potassium 6.7 mmol/L (3.5-5.1); Sodium 137 mmol/L (136-145)
[2024-05-07 15:40] LABS: Magnesium 1.5 mg/dL (1.6-2.6)
[2024-05-07] MEDS ORDERED: Insulin Regular, Human 100 UNIT/ML 10 ML VIAL ONE (15:55)
[2024-05-07] MEDS ORDERED: Sodium Bicarb 50 MEQ/50 ML Abboject 8.4% SYRINGE ONE (15:55)
[2024-05-07 16:29] LABS: Bacteria/HPF 4+ HPF (None Seen); Bilirubin Negative (Negative); Blood, Urine Trace (Negative); CAUTI Indications for Culture Alt mental st,lethar; Clarity Turbid (Clear); Glucose, Urine (Dipstick) 70 mg/dL (Negative); Ketone, Urine Negative (Negative); Leukocyte 500 Leu/uL (Negative); Nitrite Negative (Negative); Protein, Urine (Dipstick) 20 mg/dL (Neg-Trace); Specific Gravity, Urine 1.003 (1.002-1.036); Squamous Epithelial 0-3 HPF (0-3); Urobilinogen Normal mg/dL (Less than 2); WBC/HPF Greater than 50 HPF (0-3); Yeast-Budding 2+ HPF (None Seen); Yeast-Hyphae 1+ HPF (None Seen)
[2024-05-07 16:33] LABS: Urine Culture Reflex Yes Yes
[2024-05-07] MEDS ORDERED: Albuterol 2.5 MG (0.5 mL) NEB ONE ×2 (16:45→16:57)
[2024-05-07] MEDS ORDERED: Sodium Chloride 0.9% 100 ML ONE (17:07)
[2024-05-07] MEDS ORDERED: cefTRIAXone (ROCEPHIN) 1 GM VIAL ONE (17:08)
[2024-05-07 17:45] LABS: Anion Gap 16 mmol/L (10-20); BUN (Urea Nitrogen) 67 mg/dL (9.8-20.1); Calc. Creatinine Clearance 0 mL/min (70-130); Carbon Dioxide 12 mmol/L (23-31); Chloride 118 mmol/L (98-107); Estimated GFR 15; Glucose 117 mg/dL (83-110); Sodium 141 mmol/L (136-145)
[2024-05-07] MEDS ORDERED: Insulin Lispro 100 UNIT/ML 10 ML VIAL SC PRN (19:35)
[2024-05-07] MEDS ORDERED: Dextrose 5% in Water 1,000 ML IV PRN (19:35)
[2024-05-07] MEDS ORDERED: Glucagon 1 MG/ML KIT IM PRN (19:35)
[2024-05-07] MEDS ORDERED: Dextrose 50% Abboject 50 ML SYRINGE SLOW IVP PRN (19:35)
[2024-05-07] MEDS: Dextrose 50% Abboject 50 ML SYRINGE SLOW IVP SCH (20:47)
[2024-05-07] MEDS: Lactated Ringer's 1,000 ML IV SCH (21:47)
[2024-05-07] MEDS: Heparin 5,000 UNITS/ML VIAL SC SCH (21:48)
[2024-05-08 05:55] LABS: #Basophils 0.04 10x3/uL (0.0-0.2); %Basophils 0.4 % (0.0-1.0); %Eosinophils 2.4 % (0.0-10.0); %Lymphocytes 20.1 % (21.0-51.0); %Neutrophils 66.8 % (42.0-75.0); Hematocrit 32.3 % (36.0-47.0); Hemoglobin 10.3 g/dL (12.0-16.0); Mean Corpuscular HGB CONC 31.9 g/dL (32.0-36.0); Mean Corpuscular Hemoglobin 28.8 pg (27.0-31.0); Mean Corpuscular Volume 90.2 fL (78.0-98.0); Mean Platelet Volume 12.1 fL (7.4-10.4); Platelet Count 181 10x3/uL (130-400); RBC Distribution Width 15.7 % (11.5-14.5); Red Blood Cell (RBC) Count 3.58 mill/uL (4.20-5.40)
[2024-05-08 06:17] LABS: Anion Gap 16 mmol/L (10-20); BUN (Urea Nitrogen) 56 mg/dL (9.8-20.1); Calc. Creatinine Clearance 17 mL/min (70-130); Calcium 8.1 mg/dL (7.8-10.44); Carbon Dioxide 11 mmol/L (23-31); Chloride 119 mmol/L (98-107); Estimated GFR 19; Glucose 114 mg/dL (83-110); Potassium 5.2 mmol/L (3.5-5.1); Sodium 141 mmol/L (136-145)
[2024-05-08] MEDS ORDERED: Sodium Chloride 0.9% 1,000 ML IV SCH (08:00)
[2024-05-08] MEDS: Gabapentin 300 MG CAP PO SCH (10:05)
[2024-05-08] MEDS: Potassium Chloride 20 MEQ TAB PO SCH (10:05)
[2024-05-08] MEDS: Rosuvastatin 10 MG TAB PO SCH (10:06)
[2024-05-08] MEDS: Sodium Bicarbonate 150 MEQ in Dextrose 5% in Water 1,000 ML IV SCH (11:04)
[2024-05-08] MEDS: Fluconazole 100 MG TAB PO SCH (11:04)
[2024-05-08] MEDS: cefTRIAXone\\ROCEPHIN 1 GM in Sodium Chloride 0.9% 100 ML IVPB SCH (14:58)
[2024-05-08 16:24] LABS: Anion Gap 16 mmol/L (10-20); BUN (Urea Nitrogen) 49 mg/dL (9.8-20.1); Calc. Creatinine Clearance 18 mL/min (70-130); Calcium 8.3 mg/dL (7.8-10.44); Carbon Dioxide 17 mmol/L (23-31); Chloride 114 mmol/L (98-107); Estimated GFR 22; Glucose 137 mg/dL (83-110); Potassium 5.6 mmol/L (3.5-5.1); Sodium 141 mmol/L (136-145)
[2024-05-08] MEDS: Sodium Polystyrene Sulfonate 15 GM (60 mL) BOT PO SCH (18:45)
[2024-05-08] MEDS ORDERED: Torsemide 20 MG TAB PO SCH (21:00)
[2024-05-08] MEDS ORDERED: FINERENONE 10 MG PO SCH (21:00)
[2024-05-08] MEDS: Aspirin Chewable 81 MG TAB PO SCH (21:52)
[2024-05-09 03:33] LABS: #Basophils 0.05 10x3/uL (0.0-0.2); %Basophils 0.6 % (0.0-1.0); %Eosinophils 3.6 % (0.0-10.0); %Lymphocytes 24.7 % (21.0-51.0); %Monocytes 9.9 % (0.0-10.0); Hematocrit 33.9 % (36.0-47.0); Hemoglobin 10.8 g/dL (12.0-16.0); Mean Corpuscular HGB CONC 31.9 g/dL (32.0-36.0); Mean Corpuscular Hemoglobin 28.5 pg (27.0-31.0); Mean Corpuscular Volume 89.4 fL (78.0-98.0); Platelet Count 176 10x3/uL (130-400); RBC Distribution Width 15.6 % (11.5-14.5); Red Blood Cell (RBC) Count 3.79 mill/uL (4.20-5.40)
[2024-05-09 05:12] LABS: Anion Gap 17 mmol/L (10-20); BUN (Urea Nitrogen) 44 mg/dL (9.8-20.1); Calc. Creatinine Clearance 19 mL/min (70-130); Calcium 8.4 mg/dL (7.8-10.44); Carbon Dioxide 18 mmol/L (23-31); Chloride 111 mmol/L (98-107); Estimated GFR 23; Glucose 160 mg/dL (83-110); Sodium 141 mmol/L (136-145)
[2024-05-09] MEDS: Sodium Chloride 0.9% 500 ML IV SCH ×2 (05:14→06:30)
[2024-05-09] MEDS: Dextrose 5% in Water 1,000 ML IV SCH (09:53)
[2024-05-09] MEDS: Fluconazole 100 MG TAB PO SCH (09:53)
[2024-05-09] MEDS: Midodrine HCl 5 MG TAB PO SCH (09:54)
[2024-05-09 10:28] LABS: Actual Bicarbonate (HCO3a) 19.7 mEq/L (22-28); Base Excess (BEa) -3.3 mEq/L (-2.0 to +3.0); CO2 Tension 28.6 mmHg (35.0-45.0); Calcium, Ionized (arterial) 1.08 mmol/L (1.12-1.30); Carboxyhemoglobin (COHb) 0.3 gm% (0.0-3.0); Hematocrit-ABG 29 % (36.0-47.0); Hemoglobin (Hb) 9.9 g/dL (12.0-16.0); O2 Tension (PaO2), arterial 79.4 mmHg (> 60.0); Potassium - ABG Lab 4.12 mmol/L (3.70-5.30); pH, Arterial 7.456 (7.35-7.45)
[2024-05-09 10:29] LABS: Puncture Site Right Radial artery
[2024-05-09 13:40] LABS: Anion Gap 15 mmol/L (10-20); BUN (Urea Nitrogen) 35 mg/dL (9.8-20.1); Calc. Creatinine Clearance 22 mL/min (70-130); Calcium 7.9 mg/dL (7.8-10.44); Carbon Dioxide 18 mmol/L (23-31); Chloride 114 mmol/L (98-107); Estimated GFR 28; Glucose 138 mg/dL (83-110); Potassium 4.3 mmol/L (3.5-5.1); Sodium 143 mmol/L (136-145)
[2024-05-09] MEDS: Sodium Bicarbonate Tab 325 MG TAB PO SCH (20:13)
[2024-05-09] MEDS: Acetaminophen 325 MG TAB PO PRN (20:13)
[2024-05-10] MEDS: Dextrose 5% in Water 1,000 ML IV SCH (01:31)
[2024-05-10 04:17] LABS: #Basophils 0.03 10x3/uL (0.0-0.2); %Basophils 0.4 % (0.0-1.0); %Eosinophils 5.3 % (0.0-10.0); %Lymphocytes 26.5 % (21.0-51.0); %Monocytes 11.1 % (0.0-10.0); %Neutrophils 56.3 % (42.0-75.0); Hematocrit 31.4 % (36.0-47.0); Mean Corpuscular HGB CONC 31.8 g/dL (32.0-36.0); Mean Corpuscular Hemoglobin 28.5 pg (27.0-31.0); Mean Corpuscular Volume 89.5 fL (78.0-98.0); Mean Platelet Volume 11.8 fL (7.4-10.4); Platelet Count 160 10x3/uL (130-400); RBC Distribution Width 15.5 % (11.5-14.5); Red Blood Cell (RBC) Count 3.51 mill/uL (4.20-5.40)
[2024-05-10 04:38] LABS: Anion Gap 14 mmol/L (10-20); BUN (Urea Nitrogen) 28 mg/dL (9.8-20.1); Calc. Creatinine Clearance 25 mL/min (70-130); Calcium 8.1 mg/dL (7.8-10.44); Carbon Dioxide 17 mmol/L (23-31); Chloride 113 mmol/L (98-107); Estimated GFR 33; Glucose 101 mg/dL (83-110); Sodium 140 mmol/L (136-145)
[2024-05-10] MEDS: Insulin Lispro 100 UNIT/ML 10 ML VIAL SC PRN (13:44)
[2024-05-11 04:22] VITALS: BMI 23.9
[2024-05-11 05:53] LABS: #Basophils 0.03 10x3/uL (0.0-0.2); %Basophils 0.4 % (0.0-1.0); %Eosinophils 2.7 % (0.0-10.0); %Monocytes 13.2 % (0.0-10.0); %Neutrophils 59.3 % (42.0-75.0); Hematocrit 30.9 % (36.0-47.0); Hemoglobin 9.9 g/dL (12.0-16.0); Mean Corpuscular Hemoglobin 28.3 pg (27.0-31.0); Mean Corpuscular Volume 88.3 fL (78.0-98.0); Mean Platelet Volume 12.5 fL (7.4-10.4); Platelet Count 163 10x3/uL (130-400); RBC Distribution Width 15.4 % (11.5-14.5)
[2024-05-11 06:22] LABS: Anion Gap 12 mmol/L (10-20); BUN (Urea Nitrogen) 25 mg/dL (9.8-20.1); Calc. Creatinine Clearance 25 mL/min (70-130); Calcium 8.3 mg/dL (7.8-10.44); Carbon Dioxide 19 mmol/L (23-31); Chloride 112 mmol/L (98-107); Estimated GFR 31; Glucose 104 mg/dL (83-110); Potassium 3.9 mmol/L (3.5-5.1); Sodium 139 mmol/L (136-145)
[2024-05-12 05:01] LABS: Anion Gap 14 mmol/L (10-20); BUN (Urea Nitrogen) 25 mg/dL (9.8-20.1); Calc. Creatinine Clearance 26 mL/min (70-130); Calcium 8.3 mg/dL (7.8-10.44); Carbon Dioxide 19 mmol/L (23-31); Chloride 113 mmol/L (98-107); Estimated GFR 34; Glucose 98 mg/dL (83-110); Potassium 4.5 mmol/L (3.5-5.1); Sodium 141 mmol/L (136-145)
[2024-05-12 14:09] VITALS: BP 120/74; TEMP 98.4
== END 2024-05-12 14:07 | disposition home or self-care (01) | DRG 683 ==
LOC: ERS 14:32 → IMCU/EMU 20:16 → MSONC 05-10 18:18
PROVIDERS: ADMIT Family Medicine; ATTEND Family Medicine
PROC: 4A033R1 Measurement of Arterial Saturation, Peripheral, Percutaneous Approach (ICD-10-PCS; principal; 2024-05-07)
PROC: 3E03329 Introduction of Other Anti-infective into Peripheral Vein, Percutaneous Approach (ICD-10-PCS; 2024-05-07)
DX: N17.9 Acute kidney failure, unspecified (principal); E87.20 Acidosis, unspecified; N39.0 Urinary tract infection, site not specified; K86.1 Other chronic pancreatitis; E86.0 Dehydration; Z66 Do not resuscitate; I25.10 Atherosclerotic heart disease of native coronary artery without angina pectoris; E87.5 Hyperkalemia; N18.32 Chronic kidney disease, stage 3b; E11.22 Type 2 diabetes mellitus with diabetic chronic kidney disease; E78.5 Hyperlipidemia, unspecified; Z95.0 Presence of cardiac pacemaker; Z95.818 Presence of other cardiac implants and grafts; Z90.710 Acquired absence of both cervix and uterus; N32.81 Overactive bladder; R53.1 Weakness; I95.9 Hypotension, unspecified; B37.9 Candidiasis, unspecified; R41.0 Disorientation, unspecified; M17.12 Unilateral primary osteoarthritis, left knee; R19.7 Diarrhea, unspecified; M17.10 Unilateral primary osteoarthritis, unspecified knee
CPT/HCPCS: 36415; 36416; 36600; 71045; 74176; 80048; 81001; 82088; 82533; 82805; 83690; 83735; 83880; 84145; 84484; 85025; 87086; 93005; 93306; 96361; 96374; 96375; J0613; J0696; J1644; J1815; J7030; J7070; J7120; J7611; J7999